=== PATIENT | female | born 1990 | race Two or more races ===

== ENCOUNTER 2025-06-03 17:25 | Emergency (ER) | payer MEDICAID ==
[~2025-06-03] VITALS: Ht 162.6 cm; Wt 107.2 kg
[2025-06-03] MEDS ORDERED: PRED20TA2 PO (19:17)
[2025-06-03] MEDS ORDERED: DIPH25CA66 PO (19:17)
--- NOTE | 2025-06-03 19:18 | ED.PDOC ---
HPI Allergic reaction HPI Comments 35 year old female presents to ER with complaints of allergic reaction x 1 day. Patient states she started experiencing swelling with associated numbness/tingling to lips this afternoon 30 minutes after she had eaten a green apple [employer] ranc[employer]. Denies any known allergies and notes she did take Benadryl prior to arrival to ER with significant improvement. Patient denies any pain and presents to ER ambulatory on arrival, speaking in clear and complete sentences, in no distress with no tongue swelling appreciated. Denies shortness of breath, chest pain, difficulty swallowing, rash/skin changes, n/v, abdominal pain or any further symptoms/complaints Chief Complaint: Sore Throat Time Seen by MD: 18:15 Primary Care Provider: UNKNOWN Reviewed Notes: Nurses Notes, Medications, Allergies Allergies: Coded Allergies: NO KNOWN ALLERGIES (Unverified , 12/17/09) Home Meds Active Scripts Prednisone (Prednisone) 20 Mg Tab, 20 MG PO BID for 5 Days, #10 TAB 0 Refills Prov:DEEP HERNANDEZ 06/03/25 Diphenhydramine Hcl (Benadryl Allergy) 25 Mg Cap, 2 CAP PO Q4HPRN PRN, #30 CAP 0 Refills Prov:DEEP HERNANDEZ 06/03/25 Information Source: Patient Mode of Arrival: Ambulatory Past Medical History PAST MEDICAL HISTORY: Denies Surgical History: Denies all surgeries EYE CARE PROFESSIONAL History: No Pertinent EYE CARE PROFESSIONAL History Family History Family History: Unknown Social History Smoker: Non-Smoker Alcohol: Denies ETOH Use Drugs: Denies Drug Use Lives In: Home Constitutional: denies: chills, diaphoresis, fatigue, fever, malaise, sweats, weakness, others EENTM: reports: others (As stated in HPI) Respiratory: denies: cough, hemoptysis, orthopnea, SOB at rest, shortness of breath, SOB with excertion, stridor, wheezing, others Cardiovascular: denies: chest pain, dizzy spells, diaphoresis, Dyspnea on exertion, edema, irregular heart beat, left arm pain, lightheadedness, palpitations, PND, syncope, others Gastrointestinal: denies: abdomen distended, abdominal pain, blood streaked bowels, constipated, diarrhea, dysphagia, difficulty swallowing, hematemesis, melena, nausea, poor appetite, poor fluid intake, rectal bleeding, rectal pain, vomiting, others Genitourinary: denies: abnormal vagina bleeding, burning, dyspareunia, dysuria, flank pain, frequency, hematuria, incontinence, pain, , vagina discharge, urgency, others Neurological: denies: dizziness, fainting, headache, left sided numbness, left sided weakness, numbness, paresthesia, pre-existing deficit, right sided numbness, right sided weakness, seizure, speech problems, tingling, tremors, weakness, others Musculoskeletal: denies: back pain, gout, joint pain, joint swelling, muscle pain, muscle stiffness, neck pain, others Integumetry: denies: bruises, change in color, change in hair/nails, dryness, laceration, lesions, lumps, rash, wounds, others Allergic/Immunocompromised: reports: others (As stated in HPI) Hematologic/Lymphatic: denies: anemia, blood clots, easy bleeding, easy b ruising, swollen glands, others Endocrine: denies: excessive hunger, excessive sweating, excessive thirst, excessive urination, flushing, intolerance to cold, intolerance to heat, unexplained weight gain, unexplained weight loss, others Psychiatric: denies: anxiety, bipolar disorder, depression, hopeless, panic disorder, schizophrenia, sleepless, suicidal, others Physical Exam General Appearance: No Apparent Distress, Obese HEENT: Normal ENT Inspection, PERRL/EOMI, Pharynx Normal, TMs Normal Neck: Full Range of Motion, Non-Tender, Normal Respiratory: Chest Non-Tender, Lungs Clear, No Accessory Muscle Use, No Respiratory Distress, Normal Breath Sounds Cardiovascular: No Murmur, No Gallop, Regular Rate/Rhythm Breast Exam: Deferred Gastrointestinal: NOT DONE Genitalia: Deferred Pelvic: Deferred Rectal: Deferred Extremities: Normal capillary refill, Normal range of motion Neurologic: Alert, No Motor Deficits, Normal Affect, Normal Mood, No Sensory De ficits Cerebellar Function: Normal Reflexes: Normal Skin: Dry, Normal Color, Warm Peripheral Pulses: 2+ carotid (R), 2+ carotid (L), 2+ Radial (R), 2+ Radial (L), 2+ Brachial (R), 2+ Brachial (L) Lymphatic: No Adenopathy Was a procedure done? Was a procedure done?: No Sedation Sedation?: No Differential diagnosis (all) Differential Diagnosis: Anaphylaxis, Angioedema, Contact Dermatitis, Respiratory Failure X-Ray, Labs, Meds, VS Vital Signs Date Time Temp Pulse Resp B/P (MAP) Pulse Ox O2 Delivery O2 Flow Rate FiO2 06/03/25 19:19 98.3 70 18 127/75 (92) 96 98.3 06/03/25 19:19 18 06/03/25 17:38 Room Air* 0 21 06/03/25 17:35 97.6 70 16 163/84 96 97.6 Patient well appearing, vitals stable, tolerating p.o. 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 in 1-2 days Patient verbalized understanding and agreeable with current plan of care Advised to return to ER immediately if symptoms worsen Time of 1ST Reevaluation: 19:00 Reevaluation 1ST: N/A Patient Education/Counseling: Diagnosis, Treatment, Prognosis, Need For Follow Up Family Education/Counseling: No Family Present SEPSIS Sepsis Screen Date sepsis recognized/suspect: Jun 03, 2025 Time Sepsis recognized/suspect: 1734 Recent Procedure: No On Antibiotic Therapy: No Respiratory Rate >20: No Heart Rate >90: No Temp<36 C (96.8 F) or >38.3 C: No SBP <90 or MAP <65 mmHG: No New Acute Mental Status Change: No Is the patient on CPAP, BIPAP,: No Vital Signs Date Time Temp Pulse Resp B/P (MAP) Pulse Ox O2 Delivery O2 Flow Rate FiO2 06/03/25 19:19 98.3 70 18 127/75 (92) 96 98.3 06/03/25 19:19 18 06/03/25 17:38 Room Air* 0 21 06/03/25 17:35 97.6 70 16 163/84 96 97.6 Departure 1 Departure Time of Disposition: 19:15 Impression: Primary Impression: Allergic reaction Qualified Codes: T78.40XA - Allergy, unspecified, initial encounter Disposition: HOME / SELF CARE / HOMELESS Condition: Stable e-Prescriptions Prednisone (Prednisone) 20 Mg Tab 20 MG PO BID for 5 Days, #10 TAB 0 Refills Prov: DEEP HERNANDEZ 06/03/25 Diphenhydramine Hcl (Benadryl Allergy) 25 Mg Cap 2 CAP PO Q4HPRN PRN, #30 CAP 0 Refills Prov: DEEP HERNANDEZ 06/03/25 Discharged With: Friend Critical Care Note Critical Care Time?: No Stability Stability form required: No Heart Score Heart Score: Heart Score Response (Comments) Value History N/A 0 EKG N/A 0 Age N/A 0 Risk Factors N/A 0 Troponin N/A 0 Total 0 DEEP HERNANDEZ Jun 03, 2025 19:18
[2025-06-03 19:19] VITALS: BP 127/75; PULSE 70; RESP 18; TEMP 98.3; O2SAT 96
== END 2025-06-03 19:27 | disposition home or self-care (01) ==
LOC: ER 17:25
DX: T78.49XA Other allergy, initial encounter (principal); R20.2 Paresthesia of skin; R20.0 Anesthesia of skin; X58.XXXA Exposure to other specified factors, initial encounter